=== PATIENT | male | born 1960 | race Caucasian/White ===

== ENCOUNTER 2017-03-14 13:51 | Outpatient (CLI) | payer MEDICAID ==
[~2017-03-14] VITALS: Ht 171.4 cm; Wt 61.7 kg
[~2017-03-14 13:51] MED LIST: ALPR1TAB2 PO; BSP10T PO; BUSP15TA60 PO; DCS100C PO; DOXA4TAB2 PO; HYDR-3714 PO; IRBE300T13 PO; IRBE75TA31 PO; LANS30CA PO; LURA60TA PO; MELO-195 PO; NIFE90TA PO; PROP80CA4 PO; RABE20TA27 PO; SENN1TAB76 PO; VILA40TA PO
[2017-03-14] MEDS ORDERED: LURA60TA2 PO (14:03)
[2017-03-14] MEDS ORDERED: LAMO25TA PO (14:03)
[2017-03-14] MEDS ORDERED: IRBE300T42 PO (14:03)
[2017-03-14] MEDS ORDERED: LATA2.5D5 OU (14:05)
[2017-03-14] MEDS ORDERED: TIMO5DRO5 OU (14:05)
[2017-03-14] MEDS ORDERED: OMEP20TA7 PO (14:05)
[2017-03-14 14:07] VITALS: BP 155/86
[2017-03-14 14:47] LABS: BASOPHILS % (AUTO) 1 % (0-10); EOSINOPHILS # (AUTO) 0.1 10^3/uL (0.0-0.3); EOSINOPHILS % (AUTO) 2 % (0-10); LYMPHOCYTES % (AUTO) 31 % (12-44); MEAN CORPUSCULAR HEMOGLOBIN 32 PG (25-34); MEAN CORPUSCULAR HGB CONC 35 G/DL (32-36); MEAN CORPUSCULAR VOLUME 90 FL (80-99); MEAN PLATELET VOLUME 9.3 FL (7.4-10.4); MONOCYTES # (AUTO) 0.9 X 10^3 (0.0-1.0); MONOCYTES % (AUTO) 13 % (0-12); NEUTROPHILS # (AUTO) 3.6 X 10^3 (1.8-7.8); NEUTROPHILS % (AUTO) 54 % (42-75); PLATELET COUNT 189 10^3/uL (130-400); RED BLOOD COUNT 4.02 10^6/uL (4.35-5.85); RED CELL DISTRIBUTION WIDTH 13.2 % (10.0-14.5); WHITE BLOOD COUNT 6.7 10^3/uL (4.3-11.0)
[2017-03-14 15:05] LABS: ANION GAP 9 MMOL/L (5-14); BLOOD UREA NITROGEN 2 MG/DL (7-18); BUN/CREATININE RATIO 2; CALCIUM 9.3 MG/DL (8.5-10.1); CARBON DIOXIDE 26 MMOL/L (21-32); CHLORIDE 90 MMOL/L (98-107); CREATININE SERUM 0.81 MG/DL (0.60-1.30); GFR ESTIMATED > 60; GLUCOSE 93 MG/DL (70-105); POTASSIUM 4.2 MMOL/L (3.6-5.0)
[2017-03-14 15:10] LABS: SODIUM 125 MMOL/L (135-145)
--- NOTE | 2017-03-14 15:50 | Diagnostic Imaging Report ---
PA and lateral views of the chest. INDICATION: Preoperative evaluation. FINDINGS: The lungs are clear. Calcified granuloma in the left lung base is seen. The heart size is normal. No effusion or pneumothorax. The mediastinum and hima appear unremarkable. Cholecystectomy clips in the upper right abdomen seen. IMPRESSION: No acute process. Dictated by: Dictated on workstation # [id number]
== END 2017-03-14 14:45 | disposition home or self-care (01) ==
LOC: PREOP 13:51
PROVIDERS: ATTEND Otolaryngology Otolaryngology/Facial Plastic Surgery
DX: Z01.810 Encounter for preprocedural cardiovascular examination (principal); Z01.811 Encounter for preprocedural respiratory examination; Z01.812 Encounter for preprocedural laboratory examination; Z11.2 Encounter for screening for other bacterial diseases; H65.23 Chronic serous otitis media, bilateral
CPT/HCPCS: 36415; 71020; 80048; 85025; 87081; 93005

== ENCOUNTER 2017-03-17 06:23 | Day surgery (SDC) | payer MEDICAID ==
[~2017-03-17] VITALS: Ht 171.4 cm; Wt 61.7 kg
[~2017-03-17 06:23] MED LIST changes: +IRBE300T42 PO; +LAMO25TA PO; +LATA2.5D5 OU; +LURA60TA2 PO; +OMEP20TA7 PO; +TIMO5DRO5 OU
--- NOTE | 2017-03-17 06:40 | Progress Note-Pre Operative ---
Pre-Operative Progress Note H&P Reviewed The H&P was reviewed, patient examined and no changes noted. Date H&P Reviewed: March 17, 2017 Time H&P Reviewed: 06:30 Pre-Operative Diagnosis: Bilat Chronic JAKOB MILAD PATTON MD March 17, 2017 6:40 am
[2017-03-17] MEDS ORDERED: LACTATED RINGERS 1,000 ML IV PRN (06:45)
[2017-03-17] MEDS ORDERED: SEVOFLURANE (ULTANE) 15 ML INHAL SOLN ONE (07:00)
[2017-03-17] MEDS ORDERED: LIDOCAINE PF 2% 10 ML (XYLOCAINE) AMP ONE (07:00)
[2017-03-17] MEDS ORDERED: ONDANSETRON 4 MG/2 ML (SDV) Z0FRAN ONE (07:00)
[2017-03-17] MEDS ORDERED: LACTATED RINGERS 1,000 ML IV ONE (07:00)
[2017-03-17] MEDS ORDERED: proPOfol 200 MG/20 ML (DIPRIVAN) VIAL IV ONE (07:00)
[2017-03-17] MEDS ORDERED: MIDAZOLAM 2 MG/2 ML (VERSED) VIAL ONE (07:01)
[2017-03-17] MEDS ORDERED: fentaNYL INJECTION 100 MCG/2 ML AMP ONE (07:01)
[2017-03-17] MEDS ORDERED: ONDANSETRON 4 MG/2 ML (SDV) Z0FRAN IVP PRN (07:45)
[2017-03-17] MEDS ORDERED: MEPERIDINE (DEMEROL) INJ 50 MG/ML IVP PRN (07:45)
[2017-03-17] MEDS ORDERED: morphine INJ 10 MG/ML 1ML (SYR OR VIAL) IVP PRN (07:45)
[2017-03-17 07:46] VITALS: BP 148/76
--- NOTE | 2017-03-17 07:53 | Progress Note-Post Operative ---
Post-Operative Progess Note Surgeon (s)/Garment Steamer (s) Surgeon MILAD PATTON MD Garment Steamer n/a Pre-Operative Diagnosis Bilat Chronic JAKOB Post-Operative Diagnosis same Post-Op Procedure Note Date of Procedure: March 17, 2017 Name of Procedure Performed: bmt Description & Findings Description and Findings: n/a Anesthesia Type lma Estimated Blood Loss minimal Packing none. Specimen(s) collected/removed none MILAD PATTON MD March 17, 2017 7:53 am
[2017-03-17] MEDS ORDERED: APAP 325 MG/10.15 ML LIQ (TYLENOL) UDC PO PRN (08:00)
[2017-03-17 08:55] VITALS: BP 161/81
[2017-03-17] MEDS ORDERED: CIPR5DRO EACH EAR (09:06)
[2017-03-17 09:25] VITALS: BP 129/76
== END 2017-03-17 09:32 | disposition home or self-care (01) ==
LOC: SDC 06:23
PROVIDERS: ATTEND Otolaryngology Otolaryngology/Facial Plastic Surgery
DX: H66.93 Otitis media, unspecified, bilateral (principal); H69.93 Unspecified Eustachian tube disorder, bilateral; I10 Essential (primary) hypertension; G47.33 Obstructive sleep apnea (adult) (pediatric); F32.9 Major depressive disorder, single episode, unspecified; F41.9 Anxiety disorder, unspecified; F17.210 Nicotine dependence, cigarettes, uncomplicated; Z79.899 Other long term (current) drug therapy